=== PATIENT | male | born 1990 | race Caucasian/White ===

== ENCOUNTER 2018-10-22 01:59 | Emergency (ER) | payer OTHER ==
[2018-10-22 02:11] VITALS: TEMP 98.2
[2018-10-22] MEDS ORDERED: HYDROcodone/APAP 5-325MG 1 EACH TAB PO STA (02:25)
[2018-10-22] MEDS ORDERED: KETOROLAC 30 MG/ML 1 ML VIAL IM STA (02:25)
--- NOTE | 2018-10-22 03:11 | XR ---
EXAM: XR Right Clavicle Complete, 2 or More Views CLINICAL HISTORY: : Pain TECHNIQUE: Frontal and lordotic views of the right clavicle. COMPARISON: No relevant prior studies available. FINDINGS: Bones/joints: Unremarkable. No acute fracture. No dislocation. Soft tissues: Unremarkable. IMPRESSION: No evidence for fracture of the clavicle. The acromioclavicular joint appears intact
--- NOTE | 2018-10-22 03:12 | XR ---
EXAM: XR Right Shoulder Complete, 2 or More Views CLINICAL HISTORY: Reason: Pain TECHNIQUE: Two or more views of the right shoulder. COMPARISON: No relevant prior studies available. FINDINGS: Bones/joints: Unremarkable. No acute fracture. No dislocation. Soft tissues: Unremarkable. IMPRESSION: No evidence for fracture or malalignment of the right shoulder. It should be noted the inferior margin of the scapula is not included on these images
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
[2018-10-22 03:34] VITALS: BP 131/96; PULSE 79; RESP 18
== END 2018-10-22 03:34 | disposition home or self-care (01) ==
LOC: EC 01:59
DX: S43.101A Unspecified dislocation of right acromioclavicular joint, initial encounter (principal); F17.200 Nicotine dependence, unspecified, uncomplicated; Z88.0 Allergy status to penicillin; Z88.2 Allergy status to sulfonamides; V18.4XXA Pedal cycle driver injured in noncollision transport accident in traffic accident, initial encounter; Y93.55 Activity, bike riding
CPT/HCPCS: 73000; 73030; 99283; 96372; J1885

== ENCOUNTER 2020-02-01 21:41 | Inpatient (IN) | payer MEDICAID, OTHER ==
--- NOTE | 2020-02-01 22:46 | ED ---
Psych HPI - General Chief Complaint: Psychiatric Symptoms Stated Complaint: Mental health Time Seen by Provider: 02/01/20 22:33 Source: patient, RN notes reviewed, old records reviewed Mode of arrival: ambulatory - History of Present Illness Initial Comments: Is a 29-year-old male who is homeless. Patient has been persistent with homeless for a few years now. Patient states he has noted ago no return to does feel suicidal but has no active plan states he is not actively wanted to kill himself Complaint: suicidal ideation, feels depressed -: unknown Associated Psychiatric Symptoms: depression, suicidal ideation History of same: Yes Quality: constant, getting worse Improves With: none Worsens With: drug use Context: recent drug abuse Associated Symptoms: denies other symptoms Treatments Prior to Arrival: placed on mental health hold - Related Data Home Medications Medication Instructions Recorded Confirmed No Known Home Medications 02/01/20 02/01/20 Allergies Allergy/AdvReac Type Severity Reaction Status Date / Time Penicillins Allergy Unknown Verified 02/01/20 23:28 Childhood Sulfa (Sulfonamide Allergy Unknown Verified 02/01/20 23:28 Antibiotics) Childhood Review of Systems ROS Statement: Those systems with pertinent positive or pertinent negative responses have been documented in the HPI. ROS Other: All systems not noted in ROS Statement are negative. Past Medical History Past Medical History: No Reported History Additional Past Medical History / Comment(s): MULTIPLE PERSONALILITY DISIRDER History of Any Multi-Drug Resistant Organisms: None Reported Past Surgical History: Ear Surgery Past Psychological History: Bipolar, Depression, Schizoaffective Disorder, Schizophrenia Smoking Status: Current every day smoker Past Alcohol Use History: Occasional Past Drug Use History: None Reported General Exam Limitations: no limitations General appearance: alert, in no apparent distress Head exam: Present: atraumatic, normocephalic, normal inspection Eye exam: Present: normal appearance, PERRL, EOMI. Absent: scleral icterus, conjunctival injection, periorbital swelling ENT exam: Present: normal exam, mucous membranes moist Neck exam: Present: normal inspection. Absent: tenderness, meningismus, lymphadenopathy Respiratory exam: Present: normal lung sounds bilaterally. Absent: respiratory distress, wheezes, rales, rhonchi, stridor Cardiovascular Exam: Present: regular rate, normal rhythm, normal heart sounds. Absent: systolic murmur, diastolic murmur, rubs, gallop, clicks GI/Abdominal exam: Present: soft, normal bowel sounds. Absent: distended, tenderness, guarding, rebound, rigid Extremities exam: Present: normal inspection, full ROM, normal capillary refill. Absent: tenderness, pedal edema, joint swelling, calf tenderness Back exam: Present: normal inspection Neurological exam: Present: alert, oriented X3, CN II-XII intact Psychiatric exam: Present: normal affect, normal mood Skin exam: Present: warm, dry, intact, normal color. Absent: rash Course Vital Signs 02/01/20 02/02/20 22:00 00:02 Temperature 97.8 F Pulse Rate 85 86 Respiratory 20 18 Rate Blood Pressure 165/97 105/46 O2 Sat by Pulse 100 96 Oximetry - Reevaluation(s) Reevaluation #1: 02/02/20 00:13 Medical record is reviewed Medical Decision Making - Medical Decision Making 29-year-old male who was seen here in the ER by psychiatry, patient will be admitted for psychiatric evaluation and treatment - Lab Data Lab Results 02/01/20 Range/Units 23:45 Urine Opiates Screen Not Detected (NotDetected) Ur Oxycodone Screen Not Detected (NotDetected) Urine Methadone Screen Not Detected (NotDetected) Ur Propoxyphene Screen Not Detected (NotDetected) Ur Barbiturates Screen Not Detected (NotDetected) U Tricyclic Antidepress Not Detected (NotDetected) Ur Phencyclidine Scrn Not Detected (NotDetected) Ur Amphetamines Screen Not Detected (NotDetected) U Methamphetamines Scrn Detected H (NotDetected) U Benzodiazepines Scrn Not Detected (NotDetected) Urine Cocaine Screen Not Detected (NotDetected) U Marijuana (THC) Screen Detected H (NotDetected) Disposition Clinical Impression: Psychosis, Multiple personality disorder Disposition: TRANSFER TO PSYCH HOSP/UNIT Condition: Fair Is patient prescribed a controlled substance at d/c from ED?: No Referrals: Baltazar Zhang MD [Primary Care Provider] - 1-2 days
[2020-02-02 00:06] LABS: Amphetamine Screen,Urine Not Detected (NotDetected); Barbiturate Screen,Urine Not Detected (NotDetected); Benzodiazepines Screen,Urine Not Detected (NotDetected); Cocaine Screen,Urine Not Detected (NotDetected); Methadone Screen, Urine Not Detected (NotDetected); Opiate Screen,Urine Not Detected (NotDetected); Oxycodone Screen, Urine Not Detected (NotDetected); Phencyclidine Screen,Urine Not Detected (NotDetected); Tricyclic Antidepressant,Urine Not Detected (NotDetected); Urn Cannabinoid Scrn Detected (NotDetected)
[2020-02-02] MEDS ORDERED: LORazepam 1 MG TAB PO PRN (04:56)
[2020-02-02] MEDS ORDERED: MAG HYDROX/AL HYDROX/SIMETH 30 ML CUP PO PRN (04:56)
[2020-02-02] MEDS ORDERED: MAGNESIUM HYDROXIDE 2,400 MG/10 ML CUP PO PRN (04:56)
[2020-02-02] MEDS ORDERED: ACETAMINOPHEN TAB 325 MG TAB PO PRN (04:56)
[2020-02-02] MEDS ORDERED: haloperidoL 5 MG TAB PO PRN (05:00)
[2020-02-02] MEDS ORDERED: LORazepam 2 MG/ML INJ IM PRN (05:00)
[2020-02-02] MEDS ORDERED: HALOPERIDOL LACTATE 5 MG/ML 1 ML VIAL IM PRN (05:00)
[2020-02-02] MEDS: NICOTINE 21MG/24HR PATCH TRANSDERM SCH (08:20)
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
[2020-02-02] MEDS ORDERED: OLANZapine 5 MG TAB PO SCH (21:00)
[2020-02-02] MEDS ORDERED: SERTRALINE 50 MG TAB PO SCH (21:00)
[2020-02-03 06:48] VITALS: RESP 16; TEMP 97.8
[2020-02-03] MEDS: NICOTINE 21MG/24HR PATCH TRANSDERM SCH (08:14)
--- NOTE | 2020-02-03 09:45 | P.PN ---
Progress Note - Text Progress Note Date: 02/03/20 Interval History: Patient was seen resting in his bed and preferred to speak to the investment underwriter in his room with no one else present. Patient reports that he is doing "well." He states that he prefers to stay alone in his room. He is currently not reporting any suicidal or homicidal ideation, intention, and/or plan. He continues to report passive thoughts of and feelings of worthlessness. He denies any overt auditory or visual hallucinations but still continues to report that he has different personalities that talk amongst themselves in his head. He's been in adherent with his medications and reports no significant side effects at this time. The patient was encouraged to go to groups and participate in milieu activities. He reports no significant issues with sleep or appetite. Mental Status Exam: General Appearance: Patient appears to be stated age is alert, directable, and somewhat cooperative. Poor dentition. Multiple tattoos. Behavior: Patient is calmly seated without any agitated behavior. Poor eye contact. Patient refused to get out of bed. Speech: Patient's speech is fluent and nonpressured. Low in volume. Mood/Affect: Mood is improving mildly, affect is congruent and constricted but somewhat irritable. Suicidality/Homicidality: Patient denies having any suicidal or homicidal ideation intent or plan. Perceptions: Patient denies any visual hallucinations and denies any auditory hallucinations Though content/process: The patient believes that there are multiple personalities in his head and can discuss amongst themselves and takeover when needed. Memory and concentration: AOX3, grossly intact for the purposes of this session Judgment and insight: Poor Assessment Psychosis, unspecified - rule out schizoaffective disorder Major depressive disorder Rule out cluster B personality traits Nicotine dependence Methamphetamine use disorder Cannabis use disorder Plan: -Patient continues to meet criteria for inpatient psychiatric admission for symptom stabilization and safety. A second certification was completed yesterda y and along with petition will be filed for court. -Medications: Increase Zyprexa to 7.5 mg by mouth daily at bedtime for psychosis/mood augmentation Increase Zoloft to 75 mg by mouth daily at bedtime for depression/anxiety -When necessary Ativan and Haldol for agitation/aggression. -NRT - nicotine patch -SW on board for discharge planning. Encouraged the patient to participate in milieu.
--- NOTE | 2020-02-03 18:55 | CONS ---
CONSULTATION CHIEF COMPLAINT: Major depression. HISTORY OF PRESENT ILLNESS: This gentleman became extremely depressed and was having suicidal thoughts and came to the emergency room. He apparently did not make an attempt on his life. REVIEW OF SYSTEMS: He admits to being extremely depressed. He has had no headaches, problems with vision or hearing, chest pain, shortness of breath, abdominal pain, nausea, vomiting, melena, hematochezia, renal failure, frequency, urgency, incontinence, diabetes, etc. Past medical history, family history, and personal and social histories are all otherwise unremarkable and noncontributory. He is ALLERGIC to SULFA AND PENICILLIN. He has not been on any medications. He does smoke and consumes alcohol occasionally. PHYSICAL EXAMINATION: Blood pressure 134/92 with pulse 74, respirations 16. He is afebrile. In general he appeared to be slender and very depressed. Skin color was normal. Skin was warm and dry. Hydration was normal. Head, ears, eyes, nose, mouth and throat were normal and neck veins were not distended. Thyroid was not enlarged. Chest was clear. Cardiac exam was normal. The abdomen was soft and nontender. There was no visceromegaly or masses. Bowel sounds were present. Extremities were normal. Neurologically he was intact. He is admitted to the hospital with the diagnosis: Depression. PLAN: Continue to follow through with treatment with Psychiatry. MMODL / BRUCEN: [id number] /
[2020-02-03] MEDS ORDERED: SERTRALINE 25 MG TAB PO SCH (21:00)
[2020-02-03] MEDS ORDERED: OLANZapine 7.5 MG TAB PO SCH (21:00)
[2020-02-04 07:17] VITALS: BP 134/77; PULSE 52
[2020-02-04] MEDS: NICOTINE 21MG/24HR PATCH TRANSDERM SCH (09:19)
--- NOTE | 2020-02-04 10:14 | P.PN ---
Progress Note - Text Progress Note Date: 02/04/20 Interval History: Patient was seen resting in his bed and preferred to speak to the staff writer in his room with no one else present. Patient reports that he just wants to go home. He continues to report that he has thoughts of but denies any suicidal or homicidal ideation, intention, and/or plan. He is currently not reporting any delusions. He continues to state that he has multiple voices and had that discuss amongst themselves but denies any command type hallucinations or persecutory type hallucinations. His been adherent with his medications and is not reporting any prescription and side effects. His primary concern today is a headache. He remains isolative to his room. Mental Status Exam: General Appearance: Patient appears to be stated age is alert, directable, and somewhat cooperative. Poor dentition. Multiple tattoos. Behavior: Patient is calmly seated without any agitated behavior. Poor eye contact. Patient refused to get out of bed. Speech: Patient's speech is fluent and nonpressured. Low in volume. Mood/Affect: Mood is improving mildly, affect is congruent and constricted but somewhat irritable. Suicidality/Homicidality: Patient denies having any suicidal or homicidal ideation intent or plan. Perceptions: Patient denies any visual hallucinations and denies any auditory hallucinations Though content/process: The patient believes that there are multiple personalities. Memory and concentration: AOX3, grossly intact for the purposes of this session Judgment and insight: Poor Assessment Psychosis, unspecified - rule out schizoaffective disorder Major depressive disorder Rule out cluster B personality traits Nicotine dependence Methamphetamine use disorder Cannabis use disorder Plan: -Patient continues to meet criteria for inpatient psychiatric admission for symptom stabilization and safety. -Medications: Increase Zyprexa to 10 mg by mouth daily at bedtime for psychosis/mood augmentation Increase Zoloft to 100 mg by mouth daily at bedtime for depression/anxiety -When necessary Ativan and Haldol for agitation/aggression. -NRT - nicotine patch -SW on board for discharge planning. Encouraged the patient to participate in milieu.
[2020-02-04] MEDS ORDERED: OLANZapine 10 MG TAB PO SCH (21:00)
[2020-02-05] MEDS: NICOTINE 21MG/24HR PATCH TRANSDERM SCH (08:11)
[2020-02-05] MEDS ORDERED: SERTRALINE 100 MG TAB PO SCH (09:00)
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
== END 2020-02-05 11:47 | disposition home or self-care (01) | DRG 881 ==
LOC: EC 21:41 → 3MHU 02-02 04:53
PROVIDERS: ADMIT Psychiatry & Neurology Psychiatry; ATTEND Psychiatry & Neurology Psychiatry
DX: F32.9 Major depressive disorder, single episode, unspecified (principal); R45.851 Suicidal ideations; F29 Unspecified psychosis not due to a substance or known physiological condition; F15.10 Other stimulant abuse, uncomplicated; F12.10 Cannabis abuse, uncomplicated; F17.210 Nicotine dependence, cigarettes, uncomplicated; F43.10 Post-traumatic stress disorder, unspecified; F44.81 Dissociative identity disorder; F60.89 Other specific personality disorders; F41.9 Anxiety disorder, unspecified; Z20.828 Contact with and (suspected) exposure to other viral communicable diseases; Z59.0 Homelessness; Z56.0 Unemployment, unspecified; Z88.0 Allergy status to penicillin; Z88.2 Allergy status to sulfonamides
CPT/HCPCS: 80306; 82075; 87635; 99285

== ENCOUNTER → 2021-09-13 | Outpatient (CLI) | payer OTHER ==
--- NOTE | 2021-09-13 17:29 | MR ---
MR brain without contrast HISTORY: Headache Multiplanar multisequence imaging obtained through the brain No comparisons There is no restricted diffusion to suggest subacute ischemia. There is no hemorrhage or hydrocephalu s. Brain signal is maintained. The corpus callosum, pituitary, cervical medullary junction, cerebello pontine angles are unremarkable. Orbits show symmetric appearance. Mucosal disease, inflammatory mccarthy ge present within the right maxillary sinus, ethmoid air cells, inflammatory change also present in t he mastoids on the left. There are expected vascular flow voids. IMPRESSION: Unremarkable noncontrast brain MRI. Sinus disease.
== END | disposition home or self-care (01) ==
LOC: RADMRIMAIN 16:42
PROVIDERS: ATTEND Family Medicine
DX: J34.89 Other specified disorders of nose and nasal sinuses (principal)
CPT/HCPCS: 70551